=== PATIENT | female | born 1980 ===

== ENCOUNTER 2019-05-14 09:11 | Outpatient (CLI) | payer OTHER | END 2019-05-14 10:00 | disposition home or self-care (01) | LOC: RX STUDY 09:11 | DX: N97.8 Female infertility of other origin (principal) ==

== ENCOUNTER 2021-06-14 09:54 | Outpatient (CLI) | payer OTHER | END 2021-06-14 10:38 | disposition home or self-care (01) | LOC: LAB 09:54 | DX: E04.1 Nontoxic single thyroid nodule (principal) ==

== ENCOUNTER 2021-06-14 11:43 | Outpatient (CLI) | payer OTHER | END 2021-06-14 11:45 | disposition home or self-care (01) | LOC: SONOGRAMA 11:43 | DX: E04.1 Nontoxic single thyroid nodule (principal) ==

== ENCOUNTER 2022-12-28 09:56 | Outpatient (CLI) | payer OTHER | END 2022-12-28 10:04 | disposition home or self-care (01) | LOC: SONOGRAMA 09:56 | PROVIDERS: ATTEND Family Medicine | DX: N97.1 Female infertility of tubal origin (principal) ==